=== PATIENT | female | born 1990 | race Caucasian/White ===

== ENCOUNTER 2017-01-06 20:27 | Observation (INO) ==
[2017-01-06] MEDS ORDERED: *HR* HYDROmorphone (PF) 1 MG/ML SYRINGE IVP ONE (22:39)
[2017-01-06] MEDS ORDERED: 0.9 % Sodium Chloride 1,000 ML IVC ONE (22:39)
[2017-01-06] MEDS ORDERED: Ondansetron 4 MG/2 ML VIAL IVP ONE ×2 (22:39→23:39)
[2017-01-06 23:07] LABS: Basophils % 0.1 %; Eosinophils % 0.3 %; Hematocrit 39.6 % (35.3-44.9); Hemoglobin 13.9 g/dL (11.5-15.4); Immature Granulocytes % 0.5 % (0-4); Lymphocytes # 1.3 K/mcL (0.6-4.6); Lymphocytes % 16.2 %; Mean Corpuscular HGB Conc 35.1 g/dL (31.6-35.5); Mean Corpuscular Hemoglobin 28.5 pg (28.0-33.3); Mean Corpuscular Volume 81.1 fL (83.0-100.0); Mean Platelet Volume 10.3 fL (9.4-12.4); Monocytes # 0.5 K/mcL (0.0-1.3); Monocytes % 5.8 %; Neutrophils # 6.1 K/mcL (1.6-8.9); Platelet Count 225 K/mcL (140-400); Red Blood Count 4.88 M/mcL (3.82-4.97); Red Cell Distribution Width 11.8 % (11.5-14.5); Segmented Neutrophils % 77.1 %
[2017-01-06 23:22] LABS: BUN/Creatinine Ratio 13 (6-26); Blood Urea Nitrogen 10 mg/dL (7-20); Calcium 9.2 mg/dL (8.6-10.8); Carbon Dioxide 23 mEq/L (19-29); Chloride 107 mEq/L (98-109); Glucose 110 mg/dL (70-99); Osmolality,Calculated 290 (280-300); Potassium 3.2 mEq/L (3.5-4.5); Sodium 140 mEq/L (136-145); eGFR For African Americans > 60 (> 60); eGFR For Non-African Americans > 60 (> 60)
--- NOTE | 2017-01-06 23:37 | Emergency Department Note ---
Disposition Clinical Impression: Meningismus Headache Qualifiers: Headache type: unspecified Headache chronicity pattern: acute headache Intractability: not intractable Qualified Code(s): R51 - Headache Disposition: Admitted As Inpatient Referrals: Jitendra Lew MD [Primary Care Provider] - Forms: ED Satisfaction Letter Time of Disposition: 00:23 Headache HPI - General Chief Complaint: ED Dizziness Stated Complaint: headache, hands tingling,neck pain Time Seen by Provider: 01/06/17 22:34 Limitations: no limitations Nursing Notes Reviewed: Yes Vital Signs Reviewed: Yes - History of Present Illness HPI Narrative: 26-year-old female presents emergency room for headache. Headache gradually got worse ever since waking up this morning. Was not a sudden onset headache. Associated with some numbness in her arms and legs bilaterally as well as worsening neck pain and neck stiffness. Denies any documented fevers. Associated nausea. No vomiting. She also states that she has been sick for the past couple weeks with a sinus infection with purulent nasal discharge as well as a dry cough. Positive sick contacts with family members at home and her children. She also noticed this evening that she had a sore located on the right side of her neck that she thought might have been an infected hair. She has no other complaints. Headache is constant. She did try Maxalt at home which did not provide any relief. Pt Subjective Complaint: headache Pain Scale: 8 - Related Data Home Medications Medication Instructions Recorded Confirmed Vit Calc,Iron,Folic 1 each PO DAILY 11/10/15 01/21/16 [ Vitamins] Previous Rx's Medication Instructions Recorded Azithromycin [Zithromax] 500 mg PO Q24H #5 tablet 01/23/16 Docusate [Colace] 100 mg PO BID #30 capsule 01/23/16 Ibuprofen [Motrin] 600 mg PO TID PRN #60 tablet 01/23/16 Naproxen [Naprosyn] 500 mg PO BID #20 tablet 12/23/16 Oxycodone HCl/Acetaminophen 1 each PO Q6HR PRN #10 tablet 12/23/16 [Percocet 5-325 mg Tablet] Allergies Allergy/AdvReac Type Severity Reaction Status Date / Time No Known Allergies Allergy Verified 01/06/17 20:34 Constitutional: Reports: weakness Eyes: Reports: vision change ENT ED: Reports: as per HPI Cardiovascular: Reports: as per HPI Respiratory: Reports: cough Gastrointestinal: Reports: as per HPI Genitourinary: Reports: as per HPI Musculoskeletal: Reports: as per HPI, neck pain Integumentary: Reports: as per HPI Neurological: Reports: headache, weakness, numbness, paresthesias Psychiatric: Reports: as per HPI Endocrine: Reports: as per HPI Hematological/Lymphatic: Reports: as per HPI Allergic/Immunologic: Reports: as per HPI Headache PMH - Past Medical History Medical history: Reports: migraine Female Surgical History: Reports: cholecystectomy, other Psychiatric history: Reports: no psych history - Social History Smoking Status: Never smoker Alcohol use: Reports: none Drug use: Reports: none Physical Exam - General Limitations: no limitations General appearance: alert, anxious - Head Head exam: atraumatic, normocephalic - Neck Neck exam: Present: tenderness, meningismus (Diffuse meningeal symptoms. There is a open sore located to the right side of her neck that appears to be a folliculitis infection.) - Chest Chest inspection: Present: normal inspection - Respiratory Respiratory exam: Present: normal lung sounds bilaterally - Cardiovascular Cardiovascular exam: Present: regular rate, normal rhythm - Abdominal Exam Abdominal exam: Present: soft, Non-Tender, normal bowel sounds - Extremities Exam Extremities exam: Present: normal inspection - Expanded Lower Extremity Exam Hip/Pelvis exam: Present: normal inspection - Neurological Exam Neurological exam: Present: alert, oriented X3, CN II-XII intact. Absent: motor sensory deficit - Psychiatric Psychiatric exam: Present: normal affect, normal mood - Skin Skin exam: Present: warm, dry, intact Course Vital Signs Temperature 97.4 F L 01/06/17 20:29 Pulse Rate 91 01/06/17 20:29 Respiratory Rate 20 01/06/17 20:29 Blood Pressure 113/65 01/06/17 20:29 O2 Sat by Pulse Oximetry 100 01/06/17 20:29 Temperature 97.4 F L 01/06/17 20:29 Pulse Rate 76 01/06/17 23:31 Respiratory Rate 16 01/06/17 23:31 Blood Pressure 99/51 01/06/17 23:31 O2 Sat by Pulse Oximetry 99 01/06/17 23:31 Oxygen Delivery Oxygen Delivery Room Air Headache - MDM Narrative Medical decision making narrative: CT of the brain showed some chronic left maxillary sinusitis. No acute abnormality. Chest x-ray was negative. No elevated white count. CSF studies did not reveal any signs of bacterial meningitis. We have ordered a CSF culture nonetheless. I did cover her with Rocephin and vancomycin. She was also given Toradol as well as pain medications and Decadron for her headache and meningismus type presentation. Incidental note of a right skin lesion on the neck. It does not appear to be a tick bite with a bull's-eye lesion at this time. possible erlichiosis is on the list from a tick bite with the tingling in the arms. - Medical Records Medical records reviewed: Yes I reviewed the patient's medical records. - Lab Data Lab results reviewed: Yes I reviewed the patient's lab results. Result diagrams: 01/06/17 22:56 01/06/17 22:56 Lab Results 01/06/17 01/06/17 01/06/17 Range/Units 22:56 22:56 23:25 WBC 7.9 (4.3-11.1) K/mcL RBC 4.88 (3.82-4.97) M/mcL Hgb 13.9 (11.5-15.4) g/dL Hct 39.6 (35.3-44.9) % MCV 81.1 L (83.0-100.0) fL MCH 28.5 (28.0-33.3) pg MCHC 35.1 (31.6-35.5) g/dL RDW 11.8 (11.5-14.5) % Plt Count 225 (140-400) K/mcL MPV 10.3 (9.4-12.4) fL Immature Gran % 0.5 (0-4) % Seg Neutrophils % 77.1 % Lymphocytes % 16.2 % Monocytes % 5.8 % Eosinophils % 0.3 % Basophils % 0.1 % Neutrophils # 6.1 (1.6-8.9) K/mcL Lymphocytes # 1.3 (0.6-4.6) K/mcL Monocytes # 0.5 (0.0-1.3) K/mcL Eosinophils # 0.0 (0.0-0.6) K/mcL Basophils # 0.0 (0.0-0.2) K/mcL Sodium 140 (136-145) mEq/L Potassium 3.2 L (3.5-4.5) mEq/L Chloride 107 (98-109) mEq/L Carbon Dioxide 23 (19-29) mEq/L BUN 10 (7-20) mg/dL Creatinine 0.80 (0.57-1.11) mg/dL Est GFR ( Amer) > 60 (> 60) Est GFR (Non-Af Amer) > 60 (> 60) BUN/Creatinine Ratio 13 (6-26) Glucose 110 H (70-99) mg/dL Calculated Osmolality 290 (280-300) Calcium 9.2 (8.6-10.8) mg/dL CSF Volume 5.0 mL CSF Appearance Clear (Clear) CSF Color Colorless (Colorless) CSF RBC < 0.002 (0.000 - 0.002) M/mcL CSF Tot Nucleated Cells < 3 (0-5) TNC/mcL CSF Seg Neutrophils Test Not Performed CSF Band Neutrophils % Test Not Performed CSF Lymphocytes % Test Not Performed CSF Monocytes % Test Not Performed CSF Eosinophils % Test Not Performed CSF Basophils % Test Not Performed CSF Other Cells % Test Not Performed CSF Glucose 59 (40-70) mg/dL CSF Xanth Comm Not Observed (Not Observe) CSF Total Protein 25 (15-45) mg/dL - Radiology Data Radiology results reviewed: Yes I reviewed the patient's radiology results. Critical Care Time Critical Care Time: Yes Total Critical Care Time: 35 Attestation: Critical care time spent and medical management of possible meningitis and workup for such as well as fluid resuscitation and antimicrobial therapy. and consultation with hospitalist.
[2017-01-06] MEDS ORDERED: Ketorolac 30 MG/ML VIAL IVP ONE (23:48)
[2017-01-06] MEDS ORDERED: Vancomycin 1,000 MG in D5% in Water 250 ML IVPB ONE (23:48)
--- NOTE | 2017-01-06 23:59 | Emergency Department Note ---
Disposition Clinical Impression: Headache Qualifiers: Headache type: unspecified Headache chronicity pattern: acute headache Intractability: not intractable Qualified Code(s): R51 - Headache Disposition: Still a Patient Condition: Good Referrals: Jitendra Lew MD [Primary Care Provider] - Forms: ED Satisfaction Letter General Adult HPI - General Chief complaint: ED Dizziness Stated complaint: headache, hands tingling,neck pain Time Seen by Provider: 01/06/17 22:34 Source: patient Limitations: no limitations - History of Present Illness Pain Scale: 8 - Related Data Home Medications Medication Instructions Recorded Confirmed Vit Calc,Iron,Folic 1 each PO DAILY 11/10/15 01/21/16 [ Vitamins] Previous Rx's Medication Instructions Recorded Azithromycin [Zithromax] 500 mg PO Q24H #5 tablet 01/23/16 Docusate [Colace] 100 mg PO BID #30 capsule 01/23/16 Ibuprofen [Motrin] 600 mg PO TID PRN #60 tablet 01/23/16 Naproxen [Naprosyn] 500 mg PO BID #20 tablet 12/23/16 Oxycodone HCl/Acetaminophen 1 each PO Q6HR PRN #10 tablet 12/23/16 [Percocet 5-325 mg Tablet] Allergies Allergy/AdvReac Type Severity Reaction Status Date / Time No Known Allergies Allergy Verified 01/06/17 20:34 Constitutional: Reports: weakness Eyes: Reports: vision change ENT ED: Reports: as per HPI Cardiovascular: Reports: as per HPI Respiratory: Reports: cough Gastrointestinal: Reports: as per HPI Genitourinary: Reports: as per HPI Musculoskeletal: Reports: as per HPI, neck pain Integumentary: Reports: as per HPI Neurological: Reports: headache, weakness, numbness, paresthesias Psychiatric: Reports: as per HPI Endocrine: Reports: as per HPI Hematological/Lymphatic: Reports: as per HPI Allergic/Immunologic: Reports: as per HPI Past Medical History - Past Medical History Medical history: Reports: migraine Surgical history: Reports: cholecystectomy, other Psychiatric history: Reports: no psych history - Social History Smoking Status: Never smoker Smokeless Tobacco Status: No Alcohol use: Reports: none Drug use: Reports: none Physical Exam - General Limitations: no limitations General appearance: alert, anxious Course Course Narrative: My part in the patient care was for the lumbar puncture only. Please see Dr. Woodard's notes for further. Vital Signs Temperature 97.4 F L 01/06/17 20:29 Pulse Rate 91 01/06/17 20:29 Respiratory Rate 20 01/06/17 20:29 Blood Pressure 113/65 01/06/17 20:29 O2 Sat by Pulse Oximetry 100 01/06/17 20:29 Temperature 97.4 F L 01/06/17 20:29 Pulse Rate 76 01/06/17 23:31 Respiratory Rate 16 01/06/17 23:31 Blood Pressure 99/51 01/06/17 23:31 O2 Sat by Pulse Oximetry 99 01/06/17 23:31 Oxygen Delivery Oxygen Delivery Room Air Procedures - Lumbar Puncture Consent Obtained: verbal consent, written consent Time Out Performed: Yes Patient Position: upright Skin Prep: Povidone-Iodine 1% Local Anesthetic: lidocaine 1% Amount of anesthesia used (mL): 3 Spinal Needle Gauge: 22G Interspace Used: L4-L5 Fluid Initially Obtained: clear Complications: none Medical Decision Making - Lab Data Result diagrams: 01/06/17 22:56 01/06/17 22:56 Lab Results 01/06/17 01/06/17 Range/Units 22:56 22:56 WBC 7.9 (4.3-11.1) K/mcL RBC 4.88 (3.82-4.97) M/mcL Hgb 13.9 (11.5-15.4) g/dL Hct 39.6 (35.3-44.9) % MCV 81.1 L (83.0-100.0) fL MCH 28.5 (28.0-33.3) pg MCHC 35.1 (31.6-35.5) g/dL RDW 11.8 (11.5-14.5) % Plt Count 225 (140-400) K/mcL MPV 10.3 (9.4-12.4) fL Immature Gran % 0.5 (0-4) % Seg Neutrophils % 77.1 % Lymphocytes % 16.2 % Monocytes % 5.8 % Eosinophils % 0.3 % Basophils % 0.1 % Neutrophils # 6.1 (1.6-8.9) K/mcL Lymphocytes # 1.3 (0.6-4.6) K/mcL Monocytes # 0.5 (0.0-1.3) K/mcL Eosinophils # 0.0 (0.0-0.6) K/mcL Basophils # 0.0 (0.0-0.2) K/mcL Sodium 140 (136-145) mEq/L Potassium 3.2 L (3.5-4.5) mEq/L Chloride 107 (98-109) mEq/L Carbon Dioxide 23 (19-29) mEq/L BUN 10 (7-20) mg/dL Creatinine 0.80 (0.57-1.11) mg/dL Est GFR ( Amer) > 60 (> 60) Est GFR (Non-Af Amer) > 60 (> 60) BUN/Creatinine Ratio 13 (6-26) Glucose 110 H (70-99) mg/dL Calculated Osmolality 290 (280-300) Calcium 9.2 (8.6-10.8) mg/dL
[2017-01-07 00:01] LABS: Glucose,CSF 59 mg/dL (40-70); Total Protein,CSF 25 mg/dL (15-45)
[2017-01-07 00:06] LABS: Red Blood Cell,CSF < 0.002 M/mcL
[2017-01-07 00:08] LABS: Appearance,CSF Clear (Clear)
[2017-01-07] MEDS ORDERED: *HR* HYDROmorphone (PF) 1 MG/ML SYRINGE IVP ONE (00:10)
[2017-01-07] MEDS ORDERED: 0.9 % Sodium Chloride 1,000 ML IVC ONE (00:13)
[2017-01-07] MEDS: Dexamethasone 10 MG/ML VIAL IVP SCH ×2 (00:25→08:21)
--- NOTE | 2017-01-07 01:38 | Event Note ---
Date of Encounter: 01/07/17 Time of Encounter: 01:33 Patient seen and examined with durable medical equipment technician. 26-year-old female with an on December 23 presents the main complain of headache neck pain, photophobia , nasal congestion, sinus drainage. Her son has been having fevers was diagnosed with a viral infection. She was concerned about meningitis/ encephalitis. She has a history of migraine headaches. She noted the day before yesterday wound on the right side of the neck. Denies any traveler camping. Symptoms started next day after this wound. She denies any blurry vision. No focal upper or lower extremity weakness tingling and numbness in any extremity, facial symmetry or speech slenderness. Lumbar puncture performed in the emergency room shows no WBCs or RBCs. Opening pressures were not performed. Patient is having meningitis and maybe related to viral syndrome or tick bite. I will start patient empirically on doxycycline hundred milligrams IV twice daily. There is no evidence of meningitis on lumbar puncture. I would also get an MRI/MRV to r/o dural venous thrombosis. Infectious disease consultation.
[2017-01-07] MEDS ORDERED: Ketorolac 30 MG/ML VIAL IVP PRN (02:24)
[2017-01-07] MEDS ORDERED: Naloxone 0.4 MG/ML INJ IVP PRN (02:24)
--- NOTE | 2017-01-07 03:01 | Internal Med History&Physical ---
Date of Encounter: 01/07/17 Time of Encounter: 02:59 Assessment and Plan (1) Meningismus Current visit: Yes Status: Acute Patient has signs and symptoms of meningitis. Lumbar puncture reveals no total nucleated cells, glucose of 59, total protein of 25. CSF has been sent for culture. There is no lymphocytosis on CBC. Lyme disease is also in the differential. Lyme titer has been ordered. Patient has been started on empiric antibiotics with Rocephin and doxycycline. Differential also includes cranial sinus thrombosis given that the patient is on oral contraceptives as well as meningism in the setting of sinusitis. MRI of the brain and MR venogram have been ordered. We will continue with IV fluid and pain control (2) Hypokalemia Current visit: Yes Status: Acute Potassium 3.2 on presentation. We will replete. (3) DVT prophylaxis Current visit: Yes Status: Acute EPCDs Internal Medicine - H&P: HPI Chief complaint: Headache/neck stiffness Admitted From: Emergency Dept Plans for Post Hospital Care: Home History of present illness: Ms. Burns is a 26 year old female with recent spontaneous presents with headache and neck stiffness. Patient states her symptoms began yesterday, initially with a headache that gradually worsened and then later she developed neck pain and stiffness. She describes the headache as a throbbing all over and she states it feels similar to her previous migraines. She did take her migraine medicine that had no effect. She reports subjective fevers and chills but did not measure her temperature. She reports nausea but denies vomiting. She reports photophobia and phonophobia. She also states that she feels like she has had a sinus infection for approximately 4 weeks. She has sinus congestion and drainage, and she saw her doctor initially and was started on amoxicillin on December 14 however she found out she was the very next day so stopped taking her antibiotic at this time. She denies any travel recently. She does report doing several outdoor activities in wooded areas over the last several weeks. She does report an area on the side of her neck that feels like a bug bite but denies ever seeing any bugs or ticks by her in that area. She reports her son has been sick at home with sinus drainage and fevers. Past Med Surg Social Fam HX - Past Medical History Medical history: migraine Psychiatric history: no psych history - Past Surgical History Surgical History: cholecystectomy, other - Social History Smoking Status: Never smoker Smokeless Tobacco Status: No Alcohol use: none Drug use: none - Family History Mother Living Status: Still Living Hx Family Cardiac Disorders: No Hx Family Respiratory Disorders: Yes (asthma, bronchitis) Hx Family Cancer: No Hx Family GI Disorders: No Hx Family Endocrine Disorder: Yes (DM) Hx Family Neuromuscular Disorders: No Hx Family Neurologic Disorders: No Hx Family HEENT Disorders: No Hx Family Autoimmune Disorders: No Internal Medicine - H&P: Meds Vit Calc,Iron,Folic [ Vitamins] 1 each PO DAILY 11/10/15 [ History] Azithromycin [Zithromax] 500 mg PO Q24H #5 tablet 01/23/16 [Rx] Docusate [Colace] 100 mg PO BID #30 capsule 01/23/16 [Rx] Ibuprofen [Motrin] 600 mg PO TID PRN #60 tablet 01/23/16 [Rx] Naproxen [Naprosyn] 500 mg PO BID #20 tablet 12/23/16 [Rx] Oxycodone HCl/Acetaminophen [Percocet 5-325 mg Tablet] 1 each PO Q6HR PRN #10 tablet 12/23/16 [Rx] Allergies No Known Allergies Allergy (Verified 01/06/17 20:34) All Systems PM: A 10-system review of systems was performed and is negative for pertinent findings except as documented above in the HPI. - Constitutional Constitutional: chills, fever(s) - EENT Eyes: blurry vision, photophobia Additional comments: phonophobia Nose, mouth and throat: sinus pain, sinus pressure, no sore throat - Cardiovascular Cardiovascular ROS IM: no chest pain, no dyspnea, no edema, no lightheadedness, no syncope - Respiratory Respiratory: no cough, no dyspnea, no chest congestion, no excessive phlegm production, no change in phlegm color - Gastrointestinal Gastrointestinal: nausea, no abdominal pain, no diarrhea, no vomiting - Genitourinary Genitourinary: no dysuria, no hematuria - Musculoskeletal Musculoskeletal ROS IM: neck pain, numbness, stiffness (neck), tingling - Integumentary Integumentary IM: new lesions (on R lateral neck) - Neurological Neurological ROS: headache(s), numbness, tingling, no abnormal speech, no confusion, no dizziness, no focal weakness - Endocrine Endocrine IM: fatigue - Hematologic/Lymphatic Hematologic/Lymphatic: no easy bleeding, no easy bruising - Constitutional Vitals: Temp Pulse Resp BP Pulse Ox 97.8 F 70 15 120/73 99 01/07/17 02:26 01/07/17 02:26 01/07/17 02:26 01/07/17 02:26 01/07/17 02:26 General appearance: Present: A&O X 3 Exam: Appears extremely uncomfortable - Head Head exam: Present: atraumatic, normal inspection, normocephalic - Eye Eye exam: Present: EOMI, PERRL - ENT ENT exam: Present: mucous membranes moist - Neck Neck exam general surgery: Present: tenderness, nuchal rigidity, trachea midline Additional comments: There is a small crusted over lesion on the right side of the neck measuring no more than 5 mm. There is a small amount of surrounding erythema. No bull's- eye rashes noted. - Respiratory Respiratory exam: Present: CTAB. Absent: rales, rhonchi, wheezes - Cardiovascular Cardiovascular exam: Present: RRR. Absent: gallop, rubs, systolic murmur - GI/Abdominal GI/Abdominal exam: Present: normal bowel sounds, soft. Absent: distended, tenderness - Extremities Exam Extremities exam: Present: warm. Absent: pedal edema, tenderness - Neurological Exam Neurological exam: Present: alert, CN II-XII intact, oriented X3, no focal deficits - Skin Skin exam: Present: dry, warm Internal Med - H&P Results - Labs CBC & Chem 7: 01/06/17 22:56 01/06/17 22:56
[2017-01-07] MEDS: *HR* Promethazine 25 MG/ML VIAL IVP PRN ×2 (03:24→10:07)
[2017-01-07] MEDS: *HR* HYDROmorphone (PF) 1 MG/ML SYRINGE IVP PRN ×2 (03:25→08:21)
[2017-01-07] MEDS: 0.9 % Sodium Chloride 1,000 ML IVC SCH ×2 (03:26→18:50)
[2017-01-07 04:37] LABS: Basophils % 0.2 %; Hematocrit 35.9 % (35.3-44.9); Hemoglobin 12.5 g/dL (11.5-15.4); Immature Granulocytes % 0.2 % (0-4); Lymphocytes # 0.8 K/mcL (0.6-4.6); Lymphocytes % 13.7 %; Mean Corpuscular HGB Conc 34.8 g/dL (31.6-35.5); Mean Corpuscular Hemoglobin 28.7 pg (28.0-33.3); Mean Corpuscular Volume 82.3 fL (83.0-100.0); Mean Platelet Volume 10.8 fL (9.4-12.4); Monocytes # 0.1 K/mcL (0.0-1.3); Monocytes % 1.6 %; Neutrophils # 4.7 K/mcL (1.6-8.9); Platelet Count 190 K/mcL (140-400); Red Blood Count 4.36 M/mcL (3.82-4.97); Red Cell Distribution Width 11.9 % (11.5-14.5); Segmented Neutrophils % 84.3 %
[2017-01-07 05:15] LABS: BUN/Creatinine Ratio 9 (6-26); Blood Urea Nitrogen 7 mg/dL (7-20); Calcium 8.5 mg/dL (8.6-10.8); Carbon Dioxide 21 mEq/L (19-29); Chloride 108 mEq/L (98-109); Glucose 163 mg/dL (70-99); Magnesium 1.9 mg/dL (1.6-2.6); Osmolality,Calculated 286 (280-300); Potassium 3.8 mEq/L (3.5-4.5); Sodium 137 mEq/L (136-145); eGFR For African Americans > 60 (> 60); eGFR For Non-African Americans > 60 (> 60)
[2017-01-07] MEDS: Doxycycline 100 MG in 0.9 % Sodium Chloride Mini Bag 100 ML IVPB SCH ×2 (05:21→18:52)
[2017-01-07] MEDS ORDERED: *HR* OxyCODONE/APAP 10/325 TABLET PO PRN ×2 (08:33→08:40)
[2017-01-07] MEDS ORDERED: SUMAtriptan succinate 25 MG TABLET PO PRN (08:36)
[2017-01-07] MEDS: *HR* OxyCODONE/APAP 5/325 TABLET PO PRN ×2 (12:55→18:53)
--- NOTE | 2017-01-07 14:48 | Internal Med Progress Note ---
Date of Encounter: 01/07/17 Time of Encounter: 10:00 - Assessment and plan (1) Sinus infection Current Visit: No Status: Acute Assessment and plan: Patient's CT head and MRI shows a sinus infection. Probably chronic. Sinusitis cannot explain the headache. Patient is on Rocephin now. Qualifiers: Sinusitis location: maxillary Chronicity: acute Recurrence: non- recurrent Qualified Code(s): J01.00 - Acute maxillary sinusitis, unspecified (2) Headache Current Visit: Yes Status: Acute Assessment and plan: Etiology is undetermined. Pt has no fever. She has no history of herpes. CSF analysis does not support meningitis. - MRI and MRV has been done, results are unremarkable. - Suspect Lyme disease because suspected tick bite. Continue Rocephin and doxycycline. - ID consult - Continue supportive treatment Qualifiers: Headache type: unspecified Headache chronicity pattern: acute headache Intractability: not intractable Qualified Code(s): R51 - Headache (3) DVT prophylaxis Current Visit: Yes Status: Acute Assessment and plan: Lovenox subcutaneously - Time Spent With Patient 25 - 35 minutes - Subjective Interval history: Patient is a 26-year-old female admitted for headache and neck stiffness. Her past medical history is significant for migraine. Patient was seen and examined. Still complaining of headache, about 5/10, less than the beginning. Will continue Imitrex and Percocet for pain. Her vitals are stable. Because she is suspected for tick bites and Lyme disease, will obtain ID consult. - Constitutional Vitals: Temp Pulse Resp BP Pulse Ox 98.0 F 62 18 104/68 98 01/07/17 07:15 01/07/17 07:15 01/07/17 07:15 01/07/17 07:15 01/07/17 07:15 General appearance: Present: A&O X 3 - Head Head exam: Present: atraumatic, normocephalic - Eye Eye exam: Present: PERRL, conjuntiva pink, sclera anicteric Pupils: Present: PERRL - Neck Neck exam general surgery: Present: supple, trachea midline. Absent: lymphadenopathy - Respiratory Respiratory exam: Present: CTAB. Absent: accessory muscle use, rales, rhonchi, wheezes - Cardiovascular Cardiovascular exam: Present: RRR, +S1, +S2. Absent: diastolic murmur, gallop, rubs, systolic murmur - GI/Abdominal GI/Abdominal exam: Present: normal bowel sounds, soft, no peritoneal signs. Absent: distended, tenderness - Extremities Exam Extremities exam: Present: warm, radial pulses palpable and symetrical. Absent : calf tenderness, cyanotic, pedal edema - Neurological Exam Neurological exam: Present: CN II-XII intact, oriented X3, no focal deficits. Absent: pronater drift, facial droop, speech deficit - Skin Skin exam: Present: dry, intact Internal Medicine: Result - Labs CBC & Chem 7: 01/07/17 03:46 01/07/17 03:46 Labs: Short CBC 01/07/17 Range/Units 03:46 WBC 5.6 (4.3-11.1) K/mcL Hgb 12.5 (11.5-15.4) g/dL Hct 35.9 (35.3-44.9) % Plt Count 190 (140-400) K/mcL Neutrophils # 4.7 (1.6-8.9) K/mcL BMP 01/07/17 03:46 Sodium 137 Potassium 3.8 Chloride 108 Carbon Dioxide 21 BUN 7 Creatinine 0.75 Glucose 163 H Calcium 8.5 L - Impressions Impressions Head/Brain Mag Res Venography 01/07/17 03:16 IMPRESSION: Unremarkable MR venogram of the brain. No intracranial venous thrombosis is identified. D/ / 01/07/2017 13:06:03 Clive Anderson MD / [email or web address] Interpreting Provider: Clive Anderson MD Brain MRI 01/07/17 10:22 IMPRESSION: No acute brain parenchymal abnormality. No abnormal enhancement in the visualized brain parenchyma. Mucous retention cyst or polyp in the left maxillary sinus with mucoperiosteal thickening of the left maxillary sinus. D/ / 01/07/2017 13:06:23 Lorin Marin MD / henrique Interpreting Provider: Lorin Marin MD Consult Discharge Plan - Plan Referrals: Jitendra Lew MD [Primary Care Provider] -
[2017-01-07] MEDS: Ketorolac 30 MG/ML VIAL IVP PRN (15:25)
--- NOTE | 2017-01-07 18:45 | Infectious Disease Consult ---
Date of Encounter: 01/07/17 Time of Encounter: 18:40 Assessment and Plan (1) Neck pain Status: Acute Assessment and plan: LP negative for meningitis No real meningismus signs Tenderness over the left muscles likely secondary to musculoskeletal reasons (2) Photo phobia Status: Acute (3) Headache Status: Acute Qualifiers: Headache type: unspecified Headache chronicity pattern: acute headache Intractability: not intractable Qualified Code(s): R51 - Headache (4) Sinus infection Status: Acute Assessment and plan: Recommend starting Augmentin 875 twice a day for 10-14 days on discharge December DC Rocephin and doxycycline Qualifiers: Sinusitis location: maxillary Chronicity: acute Recurrence: non- recurrent Qualified Code(s): J01.00 - Acute maxillary sinusitis, unspecified Infectious Disease HPI - Data of Consult Patient: new to practice Consult date: 01/07/17 Requesting Physician: Jason Morrison MD Primary Care Provider: Jitendra Lew MD - Consult Narrative Reason for consult: Headache and neck stiffness History of present illness: Ms. Burns is a 26 year old female Patient is 26-year-old woman with past medical history mentioned below including recurrent migraines was brought in to [place] emergency department by her for severe neck pain unable to move. On further questioning, patient tells me that she's had this chronic neck pain for quite some time but it was just tension in her neck and it wasn't that painful. 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 [employer] and just graduated from nursing school. Patient states that on December 14 she thought that she had runny nose sinus pressure went to see her PCP and was given amoxicillin. Patient took 2 doses and then on December 15 she realized that she was so she stopped the antibiotics cause she didn't want to harm the baby. On December 23 she had a miscarriage. Patient since then she said she's been having this sinus pressure and runny nose. Patient tells me last week her son 6 years old had a fever 101-104 and was found to have otitis media and was given a Z-Jarred by the warehouse delivery manager. Son clinically doing better. Patient tells me she was in the usual state of health until about 2 days prior to admission which started having headache, photophobia , irritation from loud noises, and nausea. Patient tells me these are typical migraine symptoms that she always gets. Patient started her migraine medication and then woke up having severe neck stiffness. Patient denied any fevers or chills but she stated that she was feeling warm and cold but never took her temperature. Patient denied any altered mental status, no earache, no sore throat, no chest pain or shortness of breath, positive for nausea but no vomiting no diarrhea no constipation or urinary symptoms. Patient also tells me that about 3 days prior to admission she felt a bite on her neck and it cannot get red and swollen but it cannot improved significantly. Patient denied any tick bite that she could visualize. Patient told me that on Wednesday she mowed the lawn. Patient also denies any rash, no joint pain including elbows and knees ankles and hands or feet. Her only symptoms really are migraine headache with the photophobia and the neck stiffness. Since admission patient has been afebrile no leukocytosis labs have been normal. Patient did have an MRI of the brain which was nonrevealing other than for left sinus mucosal thickening. Patient also had an LP which showed no pleocytosis, normal sugar and normal protein level. Patient was started on Rocephin and doxycycline were consulted to evaluate the patient and make further recommendations. Since admission patient tells me her neck pain has somewhat improved. CC: Jason Morrison MD Past Med Surg Social Fam HX - Past Medical History Medical history: migraine Psychiatric history: no psych history - Past Surgical History Surgical History: cholecystectomy, other - Social History Smoking Status: Never smoker Smokeless Tobacco Status: No Alcohol use: none Drug use: none - Family History Mother Living Status: Still Living Hx Family Cardiac Disorders: No Hx Family Respiratory Disorders: Yes (asthma, bronchitis) Hx Family Cancer: No Hx Family GI Disorders: No Hx Family Endocrine Disorder: Yes (DM) Hx Family Neuromuscular Disorders: No Hx Family Neurologic Disorders: No Hx Family HEENT Disorders: No Hx Family Autoimmune Disorders: No Infectious Disease-CN:Meds Vit Calc,Iron,Folic [ Vitamins] 1 tab PO DAILY 11/10/15 [ History] Bupropion HCl [Wellbutrin Xl] 300 mg PO DAILY 01/07/17 [History] Norgestimate-Ethinyl Estradiol [Sprintec 28 Day Tablet] 1 tab PO DAILY 01/07/17 [History] Allergies No Known Allergies Allergy (Verified 01/06/17 20:34) Review of systems: 10 point review of systems done, negative other for what mentioned in history of present illness. Exam - Constitutional Vitals: Temp Pulse Resp BP Pulse Ox 97.5 F L 54 20 102/66 97 01/07/17 15:00 01/07/17 15:00 01/07/17 15:00 01/07/17 15:00 01/07/17 15:00 General appearance: no acute distress, no febrile - Head Head exam: Present: atraumatic, normocephalic - Neck Neck exam: Present: full ROM. Absent: meningismus Additional comments: Small red lesion on the right side of the neck from what appears to be an old insect bite but there is no apparent cellulitis fluctuance or abscess. Patient does have tenderness on palpation on the left side of the neck muscles but no true meningeal signs. No lymphadenopathy noted - Respiratory Respiratory exam: Present: CTAB. Absent: wheezes - Cardiovascular Cardiovascular exam: Present: RRR, +S1, +S2 - GI/Abdominal GI/Abdominal exam: Present: normal bowel sounds, soft. Absent: tenderness - Extremities Exam Extremities exam: Present: normal inspection. Absent: joint swelling, pedal edema, tenderness - Back Exam Back exam: Present: normal inspection. Absent: tenderness, vertebral tenderness - Neurological Exam Neurological exam: Present: alert, oriented X3. Absent: no focal deficits - Skin Additional comments: No rash observed Infectious Disease CN: Results - Labs CBC & Chem 7: 01/07/17 03:46 01/07/17 03:46 Consult Discharge Plan - Plan Referrals: Carmen Perea CNP [Advanced Practice Nurse] - 01/14/17 1:15 pm
[2017-01-08] MEDS: Ketorolac 30 MG/ML VIAL IVP PRN (00:05)
[2017-01-08 05:05] LABS: Basophils % 0.1 %; Eosinophils % 0.1 %; Hematocrit 32.1 % (35.3-44.9); Immature Granulocytes % 0.2 % (0-4); Lymphocytes # 2.2 K/mcL (0.6-4.6); Lymphocytes % 24.3 %; Mean Corpuscular Volume 84.7 fL (83.0-100.0); Monocytes # 0.6 K/mcL (0.0-1.3); Monocytes % 6.2 %; Platelet Count 176 K/mcL (140-400); Red Blood Count 3.79 M/mcL (3.82-4.97); Red Cell Distribution Width 12.5 % (11.5-14.5); Segmented Neutrophils % 69.1 %
[2017-01-08 05:12] LABS: Hemoglobin 10.6 g/dL (11.5-15.4); Neutrophils # 6.2 K/mcL (1.6-8.9)
[2017-01-08 05:20] LABS: BUN/Creatinine Ratio 14 (6-26); Blood Urea Nitrogen 9 mg/dL (7-20); Calcium 8.4 mg/dL (8.6-10.8); Carbon Dioxide 22 mEq/L (19-29); Chloride 113 mEq/L (98-109); Glucose 107 mg/dL (70-99); Osmolality,Calculated 289 (280-300); Potassium 3.9 mEq/L (3.5-4.5); Sodium 140 mEq/L (136-145); eGFR For African Americans > 60 (> 60); eGFR For Non-African Americans > 60 (> 60)
[2017-01-08] MEDS ORDERED: *HR* Enoxaparin 40 MG/0.4 ML SYRINGE SQ SCH (06:00)
[2017-01-08] MEDS ORDERED: *HR* OxyCODONE/APAP 5/325 TABLET PO PRN (08:19)
[2017-01-08] MEDS ORDERED: Ketorolac 30 MG/ML VIAL IVP PRN (08:19)
--- NOTE | 2017-01-08 10:27 | Discharge Summary ---
Date of Encounter: 01/08/17 Time of Encounter: 09:00 - Discharge Diagnosis (1) Sinus infection Priority: Primary Status: Acute Qualifiers: Sinusitis location: maxillary Chronicity: acute Recurrence: non- recurrent Qualified Code(s): J01.00 - Acute maxillary sinusitis, unspecified (2) Headache Priority: Primary Status: Acute Qualifiers: Headache type: unspecified Headache chronicity pattern: acute headache Intractability: not intractable Qualified Code(s): R51 - Headache (3) DVT prophylaxis Priority: Secondary Status: Acute - Discharge Medications Prescriptions: Amoxicillin/Clavulanate [Augmentin] 875 mg PO BIDWM #28 tablet Home Medications: Vit Calc,Iron,Folic [ Vitamins] 1 tab PO DAILY 11/10/15 [ History] Bupropion HCl [Wellbutrin Xl] 300 mg PO DAILY 01/07/17 [History] Norgestimate-Ethinyl Estradiol [Sprintec 28 Day Tablet] 1 tab PO DAILY 01/07/17 [History] Amoxicillin/Clavulanate [Augmentin] 875 mg PO BIDWM #28 tablet 01/08/17 [Rx] Allergies/Adverse Reactions: Allergies No Known Allergies Allergy (Verified 01/06/17 20:34) Procedures/tests Complete & Pending: Procedures Performed prior 72 hours Category Date Time Status MR angio veno head wo/w con [MR] Routine MRI 01/07/17 03:16 Completed MR head/brain wo/w con [MR] Stat MRI 01/07/17 10:22 Completed - Notes to Outpatient Provider Continue Augmentin 875 mg twice a day for 14 days. Date of admission: 01/07/17 00:26 Primary care physician: Jitendra Lew MD Consults: 01/07/17 13:29 Consult to Infectious Diseases [CONS] Stat Consulting Provider: Infectious Disease Arlene Reason for Consult: suspected tick bite Time Notified: 13:30 Call Completed: Yes Discharging clinician: Jason Morrison Anticipated date of discharge: 01/08/17 - Patient Status Disposition: Home, Self-Care Condition: Good Functional capacity at discharge: independent ambulation Overall status at discharge: patient is back to baseline - Discharge Instructions Follow Up With: Carmen Perea CNP [Advanced Practice Nurse] - 01/14/17 1:15 pm - Diet and Activity Activity: increase activity as tolerated Diet: advance to your usual diet Interval History: Ms. Burns is a 26 year old female with recent spontaneous presents with headache and neck stiffness. Patient states her symptoms began yesterday, initially with a headache that gradually worsened and then later she developed neck pain and stiffness. She describes the headache as a throbbing all over and she states it feels similar to her previous migraines. She did take her migraine medicine that had no effect. She reports subjective fevers and chills but did not measure her temperature. She reports nausea but denies vomiting. She reports photophobia and phonophobia. She also states that she feels like she has had a sinus infection for approximately 4 weeks. She has sinus congestion and drainage, and she saw her doctor initially and was started on amoxicillin on December 14 however she found out she was the very next day so stopped taking her antibiotic at this time. She denies any travel recently. She does report doing several outdoor activities in wooded areas over the last several weeks. She does report an area on the side of her neck that feels like a bug bite but denies ever seeing any bugs or ticks by her in that area. She reports her son has been sick at home with sinus drainage and fevers. Hospital course: Ms. Burns is a 26 year old female was admitted for headache and neck stiffness. She had an LP in emergency room, results are unremarkable. She had MRI and MRV, results unremarkable except sinusitis. She was also suspect tick bite, infection disease consult was called and saw patient. Patient was given pain medication to control headache. After treatment, her condition has improved. We will discharge patient home with Augmentin for sinusitis. I saw and examined patient today. She is awake alert. Denies headache. She due to complain mild neck pain. Vitals are stable. Her headache possibly due to migraine, which has improved. Patient was discharged home and follow-up with PCP as outpatient. - Time Spent with Patient Total time spent providing and/or coordinating discharge services: 25 min Less than 30 minutes - Constitutional Vitals: Temp Pulse Resp BP Pulse Ox 98.5 F 69 18 105/65 98 01/08/17 07:45 01/08/17 07:45 01/08/17 07:45 01/08/17 07:45 01/08/17 07:45 General appearance: Present: A&O X 3 - Head Head exam: Present: atraumatic, normocephalic - Eye Eye exam: Present: PERRL, conjuntiva pink, sclera anicteric Pupils: Present: PERRL - Neck Neck exam general surgery: Present: supple, trachea midline. Absent: lymphadenopathy - Respiratory Respiratory exam: Present: CTAB. Absent: accessory muscle use, rales, rhonchi, wheezes - Cardiovascular Cardiovascular exam: Present: RRR, +S1, +S2. Absent: diastolic murmur, gallop, rubs, systolic murmur - GI/Abdominal GI/Abdominal exam: Present: normal bowel sounds, soft, no peritoneal signs. Absent: distended, tenderness - Extremities Exam Extremities exam: Present: warm, radial pulses palpable and symetrical. Absent : calf tenderness, cyanotic, pedal edema - Neurological Exam Neurological exam: Present: CN II-XII intact, oriented X3, no focal deficits. Absent: pronater drift, facial droop, speech deficit - Skin Skin exam: Present: dry, intact
[2017-01-08 10:55] VITALS: BP 94/53
--- NOTE | 2017-01-08 11:41 | Infectious Disease Progress No ---
Date of Encounter: 01/08/17 Time of Encounter: 11:38 - Assessment and Plan (1) Sinus infection Status: Acute Causative organism unclear. MRI of the head shows left maxillary sinus thickening. Continue Augmentin 875mg PO BID x 10-14 days. Increase fluids and maintain adequate hydration. Qualifiers: Sinusitis location: maxillary Chronicity: acute Recurrence: non- recurrent Qualified Code(s): J01.00 - Acute maxillary sinusitis, unspecified (2) Headache Status: Acute Likely migraine-related, worsened by sinusitis. Continue supportive care. Pain management per the hospitalist. Qualifiers: Headache type: unspecified Headache chronicity pattern: acute headache Intractability: not intractable Qualified Code(s): R51 - Headache (3) Neck pain Status: Acute - Subjective Interval history: Patient seen and examined. No acute events noted overnight. Patient states she feels a little better this morning. Continues to report neck pain, but improved today. Denies chest pain or shortness of breath. Reports a non-productive cough and sinus congestion with yellow discharge. Denies nausea, vomiting, or diarrhea , but states she does not have much of an appetite. Denies oral thrush or new skin lesions. Infect Dis PN-Objective Data - Labs CBC & Chem 7: 01/08/17 03:40 01/08/17 03:40 Labs: Laboratory Results - last 24 hr 01/07/17 01/08/17 01/08/17 03:46 03:40 03:40 WBC 8.9 D RBC 3.79 L Hgb 10.6 L D Hct 32.1 L MCV 84.7 MCH 28.0 MCHC 33.0 RDW 12.5 Plt Count 176 MPV 11.0 Immature Gran % 0.2 Seg Neutrophils % 69.1 Lymphocytes % 24.3 Monocytes % 6.2 Eosinophils % 0.1 Basophils % 0.1 Neutrophils # 6.2 Lymphocytes # 2.2 Monocytes # 0.6 Eosinophils # 0.0 Basophils # 0.0 Sodium 140 Potassium 3.9 Chloride 113 H Carbon Dioxide 22 BUN 9 Creatinine 0.65 Est GFR ( Amer) > 60 Est GFR (Non-Af Amer) > 60 BUN/Creatinine Ratio 14 Glucose 107 H Calculated Osmolality 289 Calcium 8.4 L Lyme Total Antibody negative Cultures: Serology 01/07/17 Range/Units 03:46 Lyme Total Antibody negative (Negative) - Impressions Impressions Head/Brain Mag Res Venography 01/07/17 03:16 IMPRESSION: Unremarkable MR venogram of the brain. No intracranial venous thrombosis is identified. D/ / 01/07/2017 13:06:03 Clive Anderson MD / [email or web address] Interpreting Provider: Clive Anderson MD Brain MRI 01/07/17 10:22 IMPRESSION: No acute brain parenchymal abnormality. No abnormal enhancement in the visualized brain parenchyma. Mucous retention cyst or polyp in the left maxillary sinus with mucoperiosteal thickening of the left maxillary sinus. D/ / 01/07/2017 13:06:23 Lorin Marin MD / henrique Interpreting Provider: Lorin Marin MD Exam - Constitutional Vitals: Temp Pulse Resp BP Pulse Ox 98.0 F 62 18 94/53 97 01/08/17 10:39 01/08/17 10:39 01/08/17 10:39 01/08/17 10:39 01/08/17 10:39 General appearance: average body habitus, cooperative, no acute distress - Head Head exam: Present: atraumatic, normal inspection, normocephalic - Eye Eye exam: Present: EOMI, normal appearance, PERRL Pupils: Present: normal accommodation - ENT ENT exam: Present: mucous membranes moist - Neck Neck exam: Present: normal inspection - Respiratory Respiratory exam: Present: CTAB. Absent: rales, respiratory distress, rhonchi, wheezes - Cardiovascular Cardiovascular exam: Present: RRR, +S1, +S2 - GI/Abdominal GI/Abdominal exam: Present: normal bowel sounds, soft. Absent: distended, tenderness - Extremities Exam Extremities exam: Present: normal inspection. Absent: joint swelling, pedal edema, tenderness - Neurological Exam Neurological exam: Present: alert, oriented X3, no focal deficits - Psychiatric Psychiatric exam: Present: normal affect, normal mood - Skin Skin exam: Present: dry, intact, normal color, warm Consult Discharge Plan - Plan Referrals: Carmen Perea, SENIOR RESEARCH MANAGER [Advanced Practice Nurse] - 01/14/17 1:15 pm Prescriptions: Amoxicillin/Clavulanate [Augmentin] 875 mg PO BIDWM #28 tablet
== END 2017-01-08 11:19 | disposition home or self-care (01) ==
LOC: 3ANU 20:27 → EMEROO 20:27 → 3ANU 01-07 00:58
PROVIDERS: ADMIT Hospitalist; ATTEND Internal Medicine

== ENCOUNTER 2018-03-20 19:26 | Observation (INO) ==
[2018-03-20 19:33] LABS: Bilirubin,Urine Negative (Negative); Blood,Urine Negative (Negative); Clarity,Urine Clear (Clear); Color,Urine Yellow (Yellow); Glucose,Urine (UA) Normal (Normal); Ketones,Urine Negative (Negative); Leukocyte Esterase,Urine Small (Negative); Nitrite,Urine Negative (Negative); Protein,Urine Trace mg/dL (Neg-Trace); Specific Gravity,Urine 1.025 (1.010-1.025); Urobilinogen,Urine Normal (Normal)
[2018-03-20 19:36] LABS: Hyaline Casts,Urine None Seen per lpf (None-Few); RBC,Urine 0-3 per hpf (0-3); Squamous Epithelial Cell,Urine Many per lpf (None-Few)
[2018-03-20 19:44] LABS: Amphetamine Screen,Urine Negative ng/mL (Cutoff=1000); Barbiturate Screen,Urine Negative ng/mL (Cutoff=200); Benzodiazepines Screen,Urine Negative ng/mL (Cutoff=200); Cannabinoid Screen,Urine Negative ng/mL (Cutoff = 50); Cocaine Screen,Urine Negative ng/mL (Cutoff= 300); Opiate Screen,Urine Negative ng/mL (Cutoff=300); Phencyclidine Screen,Urine Negative ng/mL (Cutoff=25)
[2018-03-20 20:00] LABS: Bacteria,Urine Few per hpf (None-Few); Calcium Oxalate Crystals,Urine Present; Mucus,Urine Few (Few)
[2018-03-20] MEDS ORDERED: Terbutaline 1 MG/ML VIAL SQ ONE (20:19)
--- NOTE | 2018-03-20 20:26 | OB/GYN Progress Note ---
Date of Encounter: 03/20/18 Time of Encounter: 20:24 Subjective - Subjective Principal diagnosis: contractions, possible rupture of membranes Interval history: 27 yo G42 female presents at 34 weeks EGA with c/u uc's. She also had possible LOF x 2 days. Possible mucus plug 2 days ago. Objective - Exam FHR: category 1 Auscultation: bilateral: normal Abdomen: Present: gravid Cervical dilation: 2 Cervix effacement: 70 station: -2 Comments: SEE is neg for fern, pool, nitrazine - Labs Labs: Abnormal lab results Ur Leukocyte Esterase Small (Negative) H 03/20/18 19:10 Urine Microscopic WBC 5-15 per hpf (0-3) H 03/20/18 19:10 Ur Squamous Epith Cells Many per lpf (None-Few) H 03/20/18 19:10 Ur Culture Indicated? NO. (NO) A 03/20/18 19:10
[2018-03-20 20:40] LABS: Candida DNA DETECTED (Not Detect); Gardnerella DNA Not Detected (Not Detect); Trichomonas DNA Not Detected (Not Detect)
[2018-03-20] MEDS ORDERED: Betamethasone Acet/SodPhos 6 MG/ML MDV IM SCH (21:15)
== END 2018-03-20 22:00 | disposition hospice, home (50) ==
LOC: 1NENULAB
PROVIDERS: ADMIT Obstetrics & Gynecology; ATTEND Obstetrics & Gynecology

== ENCOUNTER 2018-04-23 01:46 | Inpatient (IN) ==
[~2018-04-23 01:46] MED LIST: Famotidine 20 MG/2 ML VIAL IVP PRN; Naloxone 0.4 MG/ML INJ IVP PRN; Penicillin G Potassium 5,000,000 UNIT in 0.9 % Sodium Chloride Mini Bag 100 ML IVPB ONE; Ringers Solution, Lactated 1,000 ML ONE
[2018-04-23 02:15] LABS: Amphetamine Screen,Urine Negative ng/mL (Cutoff=1000); Barbiturate Screen,Urine Negative ng/mL (Cutoff=200); Benzodiazepines Screen,Urine Negative ng/mL (Cutoff=200); Cannabinoid Screen,Urine Negative ng/mL (Cutoff = 50); Cocaine Screen,Urine Negative ng/mL (Cutoff= 300); Opiate Screen,Urine Negative ng/mL (Cutoff=300); Phencyclidine Screen,Urine Negative ng/mL (Cutoff=25)
--- NOTE | 2018-04-23 02:29 | OB/GYN History & Physical ---
Date of Encounter: 04/23/18 Time of Encounter: 02:25 Assessment and Plan (1) 38 weeks gestation of Current visit: Yes Status: Acute Admit to Labor and Delivery GBS Positive Epidural at patient request Consider AROM Anticipate Vaginal Delivery Dr. Soria is the OB website optimization strategist (2) Positive GBS test Current visit: Yes Status: Acute GBS Positive - 5 million units ONCE followed by 2.5 million units q4h History of Present Illness Chief complaint: Contractions HPI: Ms. Burns is a 27 year old female at 38 weeks, 6 days who presents with increasing contractions for the past few hours. Pt notes she started feeling contractions at 2230, which have occurred every 3-5 minutes, and have intensified since then. Endorses movement, but denies loss of clear fluid or vaginal bleeding. Denies headache, blurry vision, chest pain, SOB, nausea. care with Dr. Delgado thus far. Labs: Blood Type: B+ Rh Status: negative GBS: Positive Hep B Surf Ag: Non-reactive HIV Ab: Negative Treponema Ab: Negative G/C: Negative Varicella: Immune Rubella: Immune Urine Drug Screen: Negative Past Med Surg Social Fam HX - Past Medical History Attestation: Yes The following information was validated with the patient. Source: patient Medical history: migraine Additional medical history: IBS, Endometriosis, Diverticulosis Psychiatric history: no psych history - Past Surgical History Surgical History: cholecystectomy, other Additional surgical history: umbilical hernia, bilat knee surgery - Social History Smoking Status: Never smoker Smokeless Tobacco Status: No Alcohol use: none Drug use: none - Family History Mother Adopted: No Family Member Ethnicity: Non- Living Status: Still Living Hx Family Cardiac Disorders: No Hx Family Respiratory Disorders: Yes (chronic bronchitis, asthma) Hx Family Cancer: No Hx Family GI Disorders: No Hx Family Genitourinary Disorders: No Hx Family Endocrine Disorder: Yes (DM type 2,) Hx Family Musculoskeletal Disorders: No Hx Family Neuromuscular Disorders: No Hx Family Neurologic Disorders: No Hx Family HEENT Disorders: No Hx Family Autoimmune Disorders: Yes Hx Family Reproductive Disorders: No Hx Family Psychosocial Disorders: No Hx Family Medical Disorders: No Obstetrical History - Pregnancies : 4 Para: 2 Term: 2 : 0 Ab's: 1 Livin Medications and Allergies Vit Calc,Iron,Folic [ Vitamins] 1 tab PO DAILY 11/10/15 [ History] Atarax 10 - 50 tab PO PRN PRN 03/20/18 [History] 3 Allergy/AdvReac Type Severity Reaction Status Date / Time No Known Allergies Allergy Verified 01/06/17 20:34 Review of System OB All systems PM: reviewed and no additional remarkable complaints except as stated Exam - Vital Signs Vital signs: Vital signs reviewed and stable - Constitutional Constitutional: well developed, well nourished, no acute distress, average body habitus - HEENT HEENT: EOMI, Normocephaly - Neck Neck exam: full ROM - Lungs Respiratory exam: CTAB - Cardiovascular Cardiovascular exam: RRR, +S1, +S2 - Abdomen Abdomen: Present: bowel sounds normal, gravid - Extremities Extremities exam: full ROM, normal capillary refill, normal inspection, warm, radial pulses palpable and symmetrical Deep Tendon Reflex Grade: 2+ Normal - Cervix Dilation: 5 (Per RN) Effacement: 90 Station: -1 - Comments Comments: I examined this patient and my medical decision-making was reviewed with the Resident Physician. I agree with the documented findings, disposition and treatment plan as described except to the extent set forth below. [facility] Results Result Diagrams: 04/23/18 02:11 All other labs normal. - VTE Reasons for not Prescribing Prophylaxis: Treatment not Indicated - Low risk for VTE
[2018-04-23] MEDS ORDERED: *HR* Nalbuphine 10 MG/ML AMPUL IVP PRN (03:21)
[2018-04-23] MEDS ORDERED: Ringers Solution, Lactated 1,000 ML ONE ×2 (03:42→05:24)
[2018-04-23 03:49] LABS: Basophils % 0.3 %; Eosinophils % 0.3 %; Hematocrit 32.2 % (35.3-44.9); Immature Granulocytes % 0.8 % (0-4); Lymphocytes % 28.3 %; Mean Corpuscular HGB Conc 34.2 g/dL (31.6-35.5); Mean Corpuscular Hemoglobin 29.6 pg (28.0-33.3); Mean Corpuscular Volume 86.6 fL (83.0-100.0); Mean Platelet Volume 11.3 fL (9.4-12.4); Monocytes # 0.5 K/mcL (0.0-1.3); Monocytes % 6.7 %; Neutrophils # 4.6 K/mcL (1.6-8.9); Platelet Count 196 K/mcL (140-400); Red Blood Count 3.72 M/mcL (3.82-4.97); Red Cell Distribution Width 12.2 % (11.5-14.5); Segmented Neutrophils % 63.6 %
[2018-04-23] MEDS ORDERED: Bupivacaine-MPF 0.25% 10 ML VIAL EP ONE (03:49)
[2018-04-23] MEDS ORDERED: *HR* FentaNYL (PF) 100 MCG/2 ML VIAL EP ONE (03:49)
[2018-04-23] MEDS ORDERED: Epidural Premix (fent/bupiv) 110 ML EP SCH (04:00)
[2018-04-23] MEDS ORDERED: *HR* FentaNYL (PF) 100 MCG/2 ML VIAL ONE (04:00)
[2018-04-23] MEDS ORDERED: Lidocaine -MPF 2% 5 ML VIAL ONE (04:01)
[2018-04-23] MEDS ORDERED: Lidocaine/EPI 1:200k 2% PF 20 ML VIAL ONE (04:01)
[2018-04-23] MEDS ORDERED: Bupivacaine-MPF 0.25% 10 ML VIAL ONE (04:01)
--- NOTE | 2018-04-23 04:48 | Anesthesia Evaluation PreOp ---
Date of Encounter: 04/23/18 Time of Encounter: 03:55 - Past History Planned Operation: labor epidural Cardiac History: Denies any Significant Hx Pulmonary History: Denies Any Significant HX AIR VALVE REPAIRER History: Other (anxiety/depression) Other Medical History: Denies Any Significant HX Anesthesia History: No Prior Anesthetic Complications, Past Anesthesia (lap kathy, umbilical hernia repair, bilateral knee scopes. No problems with GA, no FHAP. 2 previous epidurals without problems.) Alcohol Use: none Drug use: none Medications and Allergies Vit Calc,Iron,Folic [ Vitamins] 1 tab PO DAILY 11/10/15 [ History] Atarax 10 - 50 tab PO PRN PRN 03/20/18 [History] 3 Allergy/AdvReac Type Severity Reaction Status Date / Time No Known Allergies Allergy Verified 01/06/17 20:34 - Meds/Allergy Pre-op Review Medications Reviewed: Yes Allergies Reviewed: Yes Beta Blockers on Current Med List: No Anesthesia Results - Labs 04/23/18 02:11 Anesthesia Exam 122/74, 62, 22, 99%. FHTs 140s. Height: 5'10" Weight: 93kg NPO (# of Hours): 10 Pain Scale: 10 Pain Scale Used: Numeric (1 - 10) - HEENT Pupil (Motor): Pupils equal Mallampati: II Teeth: Normal Oral Opening: Greater than 3 - AIR VALVE REPAIRER LOC: Oriented AIR VALVE REPAIRER Motor: Normal RUE, Normal LUE, Normal RLE, Normal LLE, Normal Face AIR VALVE REPAIRER Sensory: Normal: RUE, LUE, RLE, LLE, Face - Cardiac Rhythm: Regular - Pulmonary Breath Sounds: bilateral Clear Respiratory Effort: Symmetrical Anesthesia Assess/Plan ASA Score: 2 Modified Arnie Scale for Level of Consciousness: Cooperative, oriented, and tranquil Anesthetic Plan: Regional Monitoring Plan: Standard Monitors
[2018-04-23] MEDS ORDERED: EPHEDrine 50 MG/ML VIAL ONE (04:51)
[2018-04-23] MEDS ORDERED: Water for inj. (sterile) 10 ML IV ONE (04:51)
--- NOTE | 2018-04-23 05:07 | Anesthesia Procedures ---
Date of Encounter: 04/23/18 Time of Encounter: 04:08 Procedures: Anesthesia - Epidural/Spinal Patient ID/Chart reviewed: Yes Patient examined: Yes OB Eval: Gestational age: 36 OB Eval: : 3 OB Eval: Hx Para: 2 OB Eval: Dilated at (cm): 6 OB Eval: Contractions: Non-stressed pattern Consent Obtained: Yes Supplemental Oxygen: None/Room Air Site Prep: Aseptic Technique, Sterile prep and drape, Povidone-Iodine 1% Patient position: upright Local Anesthetic: Lidocaine 1% Amount of Local Anesthetic used: 3 Touhy Needle Gauge: 18 Touhy Needle Depth (cm): 7 Catheter Depth at Skin (cm): 18 Test Dose (1.5% Lido + Epi): Volume given (mls): 3 Test Dose Result: Negative Loading Dose: 0.25% Marcaine (mls): 8 Loading Dose: Fentanyl (mcg): 100 Loading Dose Administered: Thru Catheter Infusion Med: 0.125% Bupivacaine w/ 2 mcg/ml Fentanyl Infusion Rate (mls/hr): [address]: Tegaderm, Tape Interspace Used: L3-L4 Loss of Resistance (JOELLE): Yes Blood: No CSF: No Paresthesia: No Procedure: During bolus administration, patient became hypotensive at 99/58, nauseated and lightheaded. Gave neosynephrine 50mcg X 2 doses with improvement of symptoms and BP 108/65. A few minutes later, bp dipped again to 90s/50s with th same symptoms. Gave ephedrine 10mg X3 doses with improvement and bp 130s/80s and hr 87. Vitals + FHT's: 3 Vital Signs Time 0408 0425 0430 0435 0440 BP 122/74 123/53 110/53 99/52 108/55 Pulse 82 65 58 58 65 FHTs 140 140 140 140 140
[2018-04-23] MEDS ORDERED: Oxytocin 20 units/ LR 1000 mL 20 UNIT/1,000 ML BAG IVC ONE (05:46)
[2018-04-23] MEDS ORDERED: Penicillin G Potassium 2,500,000 UNIT in 0.9 % Sodium Chloride 100 ML IVPB SCH (06:00)
--- NOTE | 2018-04-23 06:26 | OB/GYN Procedure Note ---
Delivery - Delivery Date: 04/23/18 Provider: Cally Garcia (Dr. Mulligan PGY1) Intrapartum events: none Delivery induction: none Delivery monitor: external FHT, external uterine Anesthesia: epidural Quantitated Blood Loss: 100 - Infant (s) A Infant Delivery Date: 04/23/18 Infant Delivery Time: 05:51 Presentation: vertex Position: OA Route of delivery: Gender: Male Viability: Viable Pounds: 7 Ounces: 0 Weight Gram: 3180 kg at 1 minute: 8 at 5 mins: 9 Shoulder Dystocia: not encountered Placenta: spontaneous Cord: 3 umbilical vessels - Repair Episiotomy: none Laceration Description: None - Complications Delivery complications: none - Disposition Mom disposition: stable in LDR [place] disposition: stable in LDR - Comments Comments: Called to LDR patient complete and ready to push. Patient placed in stirrups and prepped for vaginal delivery. I was gowned and gloved and together with Dr. Mulligan PGY1 delivered a viable male infant over an intact perineum. No nuchal cord, shoulder dystocia or meconium noted. Infant placed on maternal abdomen. Cord was clamped and cut after pulsation ceased. Placenta delivered spontaneously and intact. Pericare provided, all counts correct. Both mother and stable in LDR for 2 hour recovery.
[2018-04-23] MEDS ORDERED: Lanolin 7 G OINT...G. TP PRN (08:56)
[2018-04-23] MEDS ORDERED: Benzocaine/Menthol 56 GM AEROSOL SPRAY TP PRN (08:56)
[2018-04-23] MEDS ORDERED: Measles/Mumps/Rubella Vacc 0.5 ML VIAL SQ PRN (08:56)
[2018-04-23] MEDS ORDERED: Oxytocin 20 units/ LR 1000 mL 20 UNIT/1,000 ML BAG IVC SCH (08:56)
[2018-04-23] MEDS ORDERED: Acetaminophen 325 MG TABLET PO PRN (08:56)
[2018-04-23] MEDS ORDERED: Prenatal Vit/FA 1 EACH TABLET PO SCH (09:00)
[2018-04-23] MEDS: Ibuprofen 600 MG TABLET PO PRN ×2 (09:51→17:42)
[2018-04-24 08:28] VITALS: BP 106/67
--- NOTE | 2018-04-24 10:09 | Discharge Summary ---
Date of Encounter: 04/24/18 Time of Encounter: 10:04 - Discharge Diagnosis (1) Normal vaginal delivery Priority: Primary Status: Acute Comments: Pt resting comfortably in no acute distress Pain well controlled with Motrin Mild lochia Ambulating without difficulty Normal appetite Yet to have bowel movement, but passing flatus Voiding appropriately Pt plans to breastfeed; currently without difficulty Counseled on signs and symptoms of depression - pt requested starting effexor which she had taken prior to ; advised to refrain from starting today due to and to follow up in 30 days at f/u appointment with Dr. Delgado Plan to discuss control options with and plan to discuss at f/u appointment (2) Positive GBS test Priority: Secondary Status: Resolved Comments: Pt given initial dose of Penicillin prior to delivery - Discharge Medications Prescriptions: Ibuprofen [Motrin] 600 mg PO Q6HR PRN 14 Days #56 tablet PRN Reason: Cramping Docusate [Colace] 100 mg PO BID 14 Days #28 capsule Ferrous Sulfate 325 mg PO DAILY 30 Days #30 tablet Home Medications: Vit Calc,Iron,Folic [ Vitamins] 1 tab PO DAILY 11/10/15 [ History] Atarax 10 - 50 tab PO PRN PRN 03/20/18 [History] Docusate [Colace] 100 mg PO BID 14 Days #28 capsule 04/24/18 [Rx] Ferrous Sulfate 325 mg PO DAILY 30 Days #30 tablet 04/24/18 [Rx] Ibuprofen [Motrin] 600 mg PO Q6HR PRN 14 Days #56 tablet 04/24/18 [Rx] Allergies/Adverse Reactions: 3 Allergy/AdvReac Type Severity Reaction Status Date / Time No Known Allergies Allergy Verified 01/06/17 20:34 Data Procedures and tests throughout hospitalization: Laboratory Tests 04/23/18 04/23/18 02:03 02:11 WBC 7.2 RBC 3.72 L Hgb 11.0 L Hct 32.2 L MCV 86.6 MCH 29.6 MCHC 34.2 RDW 12.2 Plt Count 196 MPV 11.3 Immature Gran % 0.8 Seg Neutrophils % 63.6 Lymphocytes % 28.3 Monocytes % 6.7 Eosinophils % 0.3 Basophils % 0.3 Neutrophils # 4.6 Lymphocytes # 2.0 Monocytes # 0.5 Eosinophils # 0.0 Basophils # 0.0 Urine Opiates Screen Negative Ur Barbiturates Screen Negative Ur Phencyclidine Scrn Negative Ur Amphetamines Screen Negative U Benzodiazepines Scrn Negative Urine Cocaine Screen Negative U Marijuana (THC) Screen Negative Ur Drug Screen Interp See Below Date of admission: 04/23/18 01:46 Consults: 04/23/18 08:56 Consult to Pediatric Acute Care Unit Nurse [CONS] Routine Comment: Vaginal delivery, consult needed Discharging clinician: Ese Vicente Anticipated date of discharge: 04/24/18 - Patient Status Disposition: Home, Self-Care Condition: Good Functional capacity at discharge: independent ambulation Overall status at discharge: patient is progressing back to baseline - Discharge Instructions Follow Up With: Enrike Delgado MD [Partnered Physician] - Additional Instructions: Perineal Care: Always wipe front to back Change your pad frequently Use your demian bottle with warm water and spray front to back Do not douche, use tampons, have sexual intercourse or put anything in your vagina for 4-6 weeks after delivery Bleeding: Vaginal bleeding can last up to 6 weeks Your menstrual period may return as early as 6 weeks after you are discharged from the hospital Alvina/Stitches Care: Vaginal Delivery Vaginal stitches will dissolve within 4-6 weeks Follow perineal care instructions Care Stitches will dissolve on their own If you have alvina, they will need to be removed in the doctors office within 5-7 days. You may shower with stitches or alvina Drip plan or soapy water over the incision to clean. Pat dry gently with a clean towel. Make sure you completely dry under the skin folds DO NOT USE powders, lotions, rubbing alcohol or hydrogen peroxide on or around your incision. This will slow your wound healing It is normal to have soreness, burning, tingling, itchiness and/or numbness as your incision heals Activity: Rest frequently Do not lift anything heavier than a gallon of milk, up to 10-15 pounds No driving for 1-2 weeks for Vaginal delivery No driving for 2-4 weeks for delivery Take stairs slowly, one at a time Gradually increase your daily activity until you are back to your normal routine Do not exercise until you have had your follow-up appointment Bathing: Take a shower daily Do not take a tub bath for the first 4 weeks Diet: Drink plenty of water and fruit juices Eat a well-balanced diet with foods high in fiber such as fruits and vegetables Depression: Your hormones have a major impact on your feelings and emotions. Hormone imbalance may cause changes in your mood, creating unfamiliar thoughts and actions. Support is available to help you understand and cope with these feelings and mood changes. If you answer yes to any of the following questions, please call your health care provider: Are you having trouble sleeping? Are you feeling isolated? Have you lost your appetite? Are you having thoughts of hurting yourself or others? WARNING SIGNS: Heavy bleeding from the vagina (blood is bright red and soaks a sanitary pad in an hour or less.) Passing a blood clot larger than your fist Discharge from the vagina that has a bad odor Temperature over 100.4 F, or if you feel cold and have chills An episiotomy site that is warm, swollen or oozing. Use a mirror if needed Urination (pee) that is painful, very red and swollen or leaking fluid An incision that is painful, very red and swollen and leaking fluid An incision that has come open Breasts that are painful or full with flu like symptoms Redness, warmth or swelling in the calf of your leg Trouble breathing, dizziness, visual disturbance or faintness *Notify your health care provider immediately or go to the nearest Emergency Room if you experience any of the above signs.* To contact the nurses station 24 hours a day, For non-urgent, routine questions, please call the office at - Diet and Activity Activity: resume usual activities as tolerated Diet: advance to your usual diet Hospital Course Reason for admission: active labor Delivery: ( ) Episiotomy: none Laceration: none Other procedures: none complications: none Discharge diagnosis: IUP at term delivered baby: male Hospital course: 27 y/o at 38 weeks 6 days presents with contractions and in active labor. Notes contractions had intensified and began occurring every 3 -5 minutes prior to arrival at Labor and Delivery unit. Pt found to be GBS positive and given initial dose of Penicillin prior to delivery. Pt eventually delivered 7lbs 0oz male infant with apgars 8/9. There was no repair necessary. Mother and baby resting comfortably . Plan to discharge home today. Time Attestation: Total time spent providing and/or coordinating discharge services: Time Spent: Less than 30 minutes Exam - Constitutional Vitals: Temp Pulse Resp BP Pulse Ox 98.3 F 68 14 106/67 97 04/24/18 08:28 04/24/18 08:28 04/24/18 08:28 04/24/18 08:28 04/24/18 08:28 General appearance IM: cooperative, A&O X 3, pleasant, no acute distress, answers questions appropriately - Respiratory Respiratory exam: Present: CTAB - Cardiovascular Cardiovascular exam IM: Present: RRR, +S1, +S2 - GI/Abdominal GI/Abdominal exam IM: normal bowel sounds, soft, no peritoneal signs - Uterine Tone: Firm Uterus Position: At Umbilicus - Extremities Exam Extremities exam IM: Present: full ROM, normal capillary refill, normal inspection, warm, radial pulses palpable and symmetrical - Neurological Exam Neurological exam: alert, CN II-XII intact, oriented X3 - Psychiatric Additional comments: Normal Mood and Affect. Pt counseled on signs and symptoms of depression. Advised to notify medical professional with worsening signs/ symptoms of depression, suicidal/homicidal ideations. - Attending Attestation I have seen and examined the above patient with Dr. Vicente and agree with the assessment
== END 2018-04-24 12:10 | disposition home or self-care (01) | DRG 774 ==
LOC: 1NENULAB → 1NENUOBS 08:36
PROVIDERS: ADMIT Advanced Practice Midwife; ATTEND Advanced Practice Midwife